=== PATIENT | male | born 1955 | race Caucasian/White ===

== ENCOUNTER → 2018-10-15 09:26 | Outpatient (CLI) | payer OTHER, SELFPAY ==
[2018-10-15 10:15] LABS: Bacteria Urine None Seen
[2018-10-15 10:15] LABS: Hematocrit 42.2 % (41-53); Hemoglobin 13.9 g/dL (13.5-17.5); Mean Corpuscular Hemoglobin 25.9 PG (26-34); Mean Corpuscular Volume 78.5 fL (80-100); Platelet Count 280 X10^3/uL (150-400); Red Blood Cell Count 5.37 X10^6/uL (4.5-5.9); Red Cell Distribution Width 13.7 % (11.6-14.8); White Blood Cell Count 7.6 X10^3/uL (4.5-11.0)
[2018-10-15 10:35] LABS: Alanine Aminotransferase 21 IU/L (21-72); Albumin 4.1 g/dL (3.5-5.0); Albumin Globulin Ratio 1.3 (1.0-2.8); Alkaline Phosphatase 108 U/L (38-126); Aspartate Aminotransferase 16 IU/L (17-59); BUN Creatinine Ratio 22.2 (6-22); Bilirubin Total 0.7 mg/dL (0.2-1.3); Blood Urea Nitrogen 20 mg/dL (9-20); Calcium 9.2 mg/dL (8.4-10.2); Carbon Dioxide 28 mmol/L (22-32); Chloride 100 mmol/L (98-107); Cholesterol 138 mg/dL (140-199); Estimated Glomerular Filt Rate > 60.0 mL/min (>60); Globulin 3.1 g/dL (1.7-4.1); Glucose 149 mg/dL (80-110); HDL Cholesterol 43 mg/dL (40-60); HEMOLYSIS < 15 (0-50); LDL Cholesterol Calculated 80 mg/dL (<100); Potassium 4.5 mmol/L (3.4-5.1); Sodium 137 mmol/L (137-145); Total Protein 7.2 g/dL (6.3-8.2); Triglycerides 74 mg/dL (35-150)
[2018-10-15 11:04] LABS: Thyroid Stimulating Hormone 0.45 uIU/mL (0.47-4.68)
[2018-10-15 17:20] LABS: Appearance Urine UA CLEAR; Bilirubin Urine UA NEGATIVE (NEGATIVE); Color Urine UA YELLOW; Glucose Urine UA 1+ g/dL (Negative); Ketones Urine UA NEGATIVE (NEGATIVE); Leukocyte Esterase Urine UA NEGATIVE (NEGATIVE); Nitrite Urine UA NEGATIVE (Negative); Occult Blood Urine UA NEGATIVE (Negative); Protein Urine UA NEGATIVE (Negative); Urobilinogen Urine UA 0.2 E.U./dL (0.2); pH Urine UA 5.5 (4.5-8.0)
[2018-10-15 17:34] LABS: Culture Indicated Urine Cult Not Indicated; RBC Urine 0-1/HPF (0-5/HPF); Squamous Epithelial Cell Urine 1-5 /HPF; WBC Urine 0-1/HPF (0-5/HPF)
== END ==
PROVIDERS: PCP Family Medicine; Visit Provider Family Medicine
DX: I10 Essential (primary) hypertension (principal); Z00.00 Encounter for general adult medical examination without abnormal findings; Z51.81 Encounter for therapeutic drug level monitoring
CPT/HCPCS: 36415; 80053; 80061; 81001; 84443; 85027

== ENCOUNTER 2018-10-22 18:39 | Emergency (ER) | payer OTHER, SELFPAY ==
[2018-10-22 18:42] VITALS: BP 142/77; PULSE 72; RESP 16; TEMP 35.5; O2SAT 98
--- NOTE | 2018-10-22 18:49 | DI.CT.S_ITS ---
PROCEDURE: CT HEAD/BRAIN WO CON INDICATIONS: sudden loss of vision lt eye x20 min, improving per pt TECHNIQUE: Noncontrast 4.5 mm thick angled axial sections acquired from the foramen magnum to the vertex, with coronal and sagittal reformats. For radiation dose reduction, the following was used: automated exposure control, adjustment of mA and/or kV according to patient size. COMPARISON: [facility], CT, HEAD WITHOUT CONTRAST, 05/18/2016, 8:00. FINDINGS: Image quality: Excellent. CSF spaces: Basal cisterns are patent. No extra-axial fluid collections. The ventricles are symmetric in size and shape. Brain: No intracranial bleeds or masses. There is mild cerebral volume loss for age, with resultant ventricular and sulcal prominence. There are mild periventricular and deep white matter chronic small vessel ischemic changes. There is intracranial internal carotid artery atherosclerosis. Skull and face: Calvarium and visualized facial bones appear intact, without suspicious lesions. Sinuses: Visualized sinuses and mastoids are clear. IMPRESSION: 1. No acute intracranial abnormalities. 2. Mild cerebral volume loss and chronic microvascular ischemic changes. Dictated by: Allie Munoz M.D. on 10/22/2018 at 19:55 Approved by: Allie Munoz M.D. on 10/22/2018 at 19:57
--- NOTE | 2018-10-22 19:01 | ED_ITS ---
HPI - Neuro Symptoms/Deficit General Chief Complaint: Neuro Symptoms/Deficit Stated Complaint: VISION CHANGES LEFT EYE Time Seen by Provider: 10/22/18 18:53 Source: patient Mode of arrival: ambulatory Limitations: no limitations History of Present Illness HPI Narrative: 63-year-old male here for evaluation of blurry vision in his left eye. 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 He states that it was isolated to his left eye. Had no other associated symptoms. Does wear glasses. No contacts. No history of PRK or Lasix. The time he arrived here in the emergency department his symptoms have improved. He states that he did not lose vision in that left eye just it was a wavy sensation. Has never had anything like this before. On Anticoagulants: Yes (asp) Related Data Home Medications Medication Instructions Recorded Confirmed [TYLENOL] PRN #0 01/19/11 10/19/18 aspirin 325 mg PO QDAY #0 06/07/13 10/19/18 Previous Rx's Medication Instructions Recorded albuterol sulfate [Ventolin HFA] 2 puff INH Q4HP PRN #1 inh 07/02/16 lisinopril 10 mg tablet 10 mg PO QDAY #10 tab 10/09/18 Allergies Allergy/AdvReac Type Severity Reaction Status Date / Time Penicillins [PENICILLINS] Allergy Unknown I WAS A Verified 10/19/18 09:16 CHILD AND MY MOTHER IS NO LONGER HERE TO ASK Review of Systems Constitutional Denies fever(s), Denies headache(s) and Denies lethargy Eyes Reports blurry vision, Reports change in vision, Denies diplopia, Denies eye discharge, Denies dry eyes, Reports floaters, Denies irritation, Denies itchy eyes, Denies loss of peripheral vision, Denies eye pain, Reports requires corrective lenses, Denies photophobia and Denies tunnel vision ENT Ears, Nose, Mouth, and Throat: Denies dysphagia, Denies vertigo, Denies dizziness, Denies headache(s) and Denies disequilibrium Cardiovascular Denies chest pain, Denies palpitations and Denies dyspnea Respiratory Denies dyspnea Gastrointestinal Gastrointestinal: Denies dysphagia Genitourinary Denies dysuria Musculoskeletal Denies abnormal gait, Denies myalgias, Denies arthralgias and Denies tingling Integumentary/Breasts Denies lesions and Denies rash Neurologic Denies abnormal gait, Denies behavioral changes, Denies confusion, Denies vertigo, Denies dizziness, Denies headache(s), Denies tingling and Denies disequilibrium Psychiatric Denies behavioral changes and Denies confusion Endocrine Denies palpitations Hematologic/Lymphatic Denies easy bleeding and Denies easy bruising Allergic/Immunologic Denies itchy eyes PFSH Medical History Hypertension (Acute) Family History Brother MS (multiple sclerosis) Uncomplicated asthma, unspecified asthma severity Mother Secondary hypertension, unspecified Uncomplicated asthma, unspecified asthma severity Sister Uncomplicated asthma, unspecified asthma severity Social History Smoking Status: Former smoker Tobacco: How many years used: 15 alcohol intake: current (Rare) Family History Brother MS (multiple sclerosis) Uncomplicated asthma, unspecified asthma severity Mother Secondary hypertension, unspecified Uncomplicated asthma, unspecified asthma severity Sister Uncomplicated asthma, unspecified asthma severity Social History Smoking Status: Former smoker Tobacco: How many years used: 15 alcohol intake: current (Rare) Exam Initial Vital Signs Initial Vital Signs: Vital Signs Temperature 95.9 F L 10/22/18 18:42 Pulse Rate 72 10/22/18 18:42 Respiratory Rate 16 10/22/18 18:42 Blood Pressure 142/77 H 10/22/18 18:42 Pulse Oximetry 98 10/22/18 18:42 Const General: cooperative, healthy appearing, comfortable, well developed, well groomed and No acute distress Orientation: alert, awake and oriented x3 HENMT Head: normal to inspection and normocephalic Ears: TM's normal bilaterally Nose: external nose normal Face and sinus: normal facial exam Mouth: oral mucosae normal Eyes Eyelids: eyelids normal Conjunctivae: conjunctivae normal Sclera: sclerae normal Pupils: PERRL EOM: EOM intact bilaterally Neck Lymphatic: No lymphadenopathy Chest Chest: normal inspection of the chest Resp Effort & Inspection: normal respiratory effort Auscultation: clear to auscultation bilaterally Cardio Rate: regular rate Rhythm: regular rhythm Pulses: radial pulses present GI Inspection: non-distended Palpation: soft, No firm and No tender Skin Lesions: no lesions Rashes: no rashes Neuro General: alert and awake Cranial Nerves: CN's II-XI intact bilaterally Cognition: normal cognition Speech: speech normal Gait: normal gait Motor: muscle tone normal throughout Sensory Exam: no sensory deficits noted Extrem General: normal to inspection and capillary refill normal Psych Appearance: grossly normal and well kempt Course Orders Ordered: ED Orders 10/22/18 18:49 CT head/brain wo con Stat 10/22/18 19:02 EKG-12 Lead Stat Vital Signs - 8 hr 10/22/18 18:42 10/22/18 19:50 Temperature 95.9 F L Pulse Rate 72 72 Respiratory Rate 16 16 Blood Pressure 142/77 H Blood Pressure [Right Wrist] 125/69 Pulse Oximetry 98 97 MDM - Neuro Symptoms/Deficit Imaging Data CT scan - head: Radiologist's impression: [address] [address] [address] Scan Report Signed Patient: Hunter Forrest#: [id number] : 5Acct:[id number] Age/Sex: 63 / MDate of Service: 10/22/18 Loc: ED Accession Number: [id number] Procedure: CT head/brain wo con Ordering Provider: Camron Gomez D.O. PROCEDURE: CT HEAD/BRAIN WO CON INDICATIONS: sudden loss of vision lt eye x20 min, improving per pt TECHNIQUE: Noncontrast 4.5 mm thick angled axial sections acquired from the foramen magnum to the vertex, with coronal and sagittal reformats. For radiation dose reduction, the following was used: automated exposure control, adjustment of mA and/or kV according to patient size. COMPARISON: [facility], CT, HEAD WITHOUT CONTRAST, 05/18/2016, 8:00. FINDINGS: Image quality: Excellent. CSF spaces: Basal cisterns are patent. No extra-axial fluid collections. The ventricles are symmetric in size and shape. Brain: No intracranial bleeds or masses. There is mild cerebral volume loss for age, with resultant ventricular and sulcal prominence. There are mild periventricular and deep white matter chronic small vessel ischemic changes. There is intracranial internal carotid artery atherosclerosis. Skull and face: Calvarium and visualized facial bones appear intact, without suspicious lesions. Sinuses: Visualized sinuses and mastoids are clear. IMPRESSION: 1. No acute intracranial abnormalities. 2. Mild cerebral volume loss and chronic microvascular ischemic changes. Dictated by: Allie Munoz M.D. on 10/22/2018 at 19:55 Approved by: Allie Munoz M.D. on 10/22/2018 at 19:57 ECG Data Attestation: I personally reviewed and interpreted this ECG as follows: Prior ECG tracings: not available for review Interpretation: Sinus rhythm Ventricular rate is 78 Normal axis Normal QRS Normal QTC No ST T wave changes MDM Narrative Medical decision making narrative: Patient with a normal neurologic exam here in the emergency department. The symptoms that brought him into the ER have resolved. His head CT was negative. EKG is unremarkable. Isolated left eye blurry vision. This was not a loss of vision. He had no other associated symptoms at the time. Will hold on further workup for now. He has not seen his eye doctor in 2 years. Advise him that now be the time to make a follow-up appointment to get a dilated eye exam. Patient was given return precautions. He expressed understanding and agreement plan. Discharge Plan Departure Patient Disposition: Home Clinical Impression: Monocular visual disturbance Discharge Date/Time: 10/22/18 20:09 Interventions: ED Discharge Assessment Last Done: 10/22/18 20:09 Instructions: DI for Visual Field Disturbances Activity Restrictions/Additional Instructions: Continue all of your medication as directed. Tomorrow contact your primary care doctor for a follow-up. I also recommend you contact your eye doctor for a follow-up. Return to the emergency department for any new or worsening symptoms Prescriptions: No Action [TYLENOL] PRN Qty: 0 RF: 0 aspirin 325 MG tablet,delayed release (DR/EC) 325 mg PO QDAY Qty: 0 RF: 0 albuterol sulfate [Ventolin HFA] 90 MCG/PUFF HFA aerosol inhaler 2 puff INH Q4HP PRNQty: 1 RF: 0 lisinopril 10 mg tablet 10 mg PO QDAY Qty: 10 RF: 0 Referrals: Siena Cunha DO [Primary Care Provider] -
[2018-10-22 19:50] VITALS: BP 125/69; PULSE 72; RESP 16; O2SAT 97
== END 2018-10-22 20:09 | disposition home or self-care (01) ==
PROVIDERS: Emergency Provider Emergency Medicine; PCP Family Medicine
DX: H53.9 Unspecified visual disturbance (principal)
CPT/HCPCS: 70450; 93005; 99283; 99284; 99291

== ENCOUNTER → 2019-01-01 13:59 | Outpatient (CLI) | payer OTHER, SELFPAY ==
--- NOTE | 2019-01-01 14:01 | DI.RAD.S_ITS ---
PROCEDURE: XR LUMBAR SPINE 2-3V INDICATIONS: low back pain TECHNIQUE: 3 views of the lumbar spine were acquired. COMPARISON: None. FINDINGS: Bones: 5 [id number] vertebrae are present. There is normal bony alignment. No vertebral body compression fractures. No suspicious bony lesions. There is degenerative disc disease, moderate to severe at T12-L1, L4-L5 and L5-S1, and mild/moderate at L3-L4. There is severe facet arthropathy at L4-L5 and L5-S1. Soft tissues: Overlying bowel gas pattern is normal. No suspicious soft tissue calcifications. IMPRESSION: Degenerative disc and facet disease. Dictated by: Allie Munoz M.D. on 01/01/2019 at 17:05 Approved by: Allie Munoz M.D. on 01/01/2019 at 17:08
== END ==
PROVIDERS: PCP Family Medicine; Visit Provider Family Medicine
DX: M54.5 Low back pain (principal); M51.15 Intervertebral disc disorders with radiculopathy, thoracolumbar region; M51.16 Intervertebral disc disorders with radiculopathy, lumbar region; M51.17 Intervertebral disc disorders with radiculopathy, lumbosacral region; M47.26 Other spondylosis with radiculopathy, lumbar region; M47.27 Other spondylosis with radiculopathy, lumbosacral region
CPT/HCPCS: 72100

== ENCOUNTER → 2019-07-16 09:14 | Outpatient (CLI) | payer OTHER, SELFPAY ==
[2019-07-16 11:04] LABS: Hemoglobin A1C% w Est Avg Glu 6.9 % (4.0-6.0)
[2019-07-16 11:15] LABS: Alanine Aminotransferase 11 IU/L (<50); Albumin Globulin Ratio 1.4 (1.0-2.8); Alkaline Phosphatase 100 U/L (38-126); Aspartate Aminotransferase 19 IU/L (17-59); Bilirubin Total 1.1 mg/dL (0.2-1.3); Blood Urea Nitrogen 17 mg/dL (9-20); Calcium 9.8 mg/dL (8.4-10.2); Carbon Dioxide 29 mmol/L (22-32); Chloride 96 mmol/L (98-107); Estimated Glomerular Filt Rate > 60.0 mL/min (>60); Globulin 2.9 g/dL (1.7-4.1); Glucose 131 mg/dL (80-110); HEMOLYSIS < 15 (0-50); Potassium 4.6 mmol/L (3.4-5.1); Sodium 133 mmol/L (137-145); Total Protein 6.9 g/dL (6.3-8.2)
== END ==
PROVIDERS: PCP Family Medicine; Visit Provider Family Medicine
DX: R35.0 Frequency of micturition (principal)
CPT/HCPCS: 36415; 80053; 83036

== ENCOUNTER → 2021-02-10 14:29 | Outpatient (CLI) | payer OTHER, SELFPAY ==
--- NOTE | 2021-02-10 | DI.RAD.S_ITS ---
PROCEDURE: XR PELVIS 1-2V INDICATIONS: LOW BACK PAIN, LEFT GROIN PAIN TECHNIQUE: 1 view(s) of the pelvis acquired. COMPARISON: None. FINDINGS: Bones: No fractures or dislocations. No suspicious bony lesions. Mild joint narrowing with periarticular osteophyte formation. Degenerative disc and facet disease involves the inferior lumbar spine. Soft tissues: Visualized bowel gas pattern is normal. No suspicious soft tissue calcifications. IMPRESSION: Mild symmetric hip joint degeneration. Dictated by: Vicente CASTRO Interpreted: Robby Quintero MD on 02/10/2021 at 16:57 Transcribed by: ROSIE on 02/10/2021 at 16:58 Approved by: Robby Quintero M.D. on 02/10/2021 at 17:17
--- NOTE | 2021-02-10 | DI.RAD.S_ITS ---
PROCEDURE: XR LUMBAR SPINE 2-3V INDICATIONS: LOW BACK PAIN, LEFT GROIN PAIN TECHNIQUE: 3 views of the lumbar spine were acquired. COMPARISON: [facility], CR, XR LUMBAR SPINE 2-3V, 01/01/2019, 14:04. FINDINGS: Bones: 5 [id number] vertebrae are present. Trace levo curvature centered at the L3 level. Trace multilevel retrolisthesis. Multilevel disc degeneration, severe at the L5-S1 level. Mild L4-L5 and L5-S1 facet joint arthropathy. No vertebral body compression fractures. No suspicious bony lesions. Soft tissues: Overlying bowel gas pattern is normal. No suspicious soft tissue calcifications. IMPRESSION: Multilevel spondylosis. Dictated by: Vicente Andersen [facility] Interpreted: Robby Quintero MD on 02/10/2021 at 16:56 Transcribed by: ROSIE on 02/10/2021 at 16:57 Approved by: Robby Quintero M.D. on 02/10/2021 at 17:17
== END ==
PROVIDERS: PCP Internal Medicine; Referring Provider Internal Medicine; Visit Provider Internal Medicine
DX: M54.5 Low back pain (principal)
CPT/HCPCS: 72100; 72170